=== PATIENT | female | born 1990 | race Hispanic/Latino ===

== ENCOUNTER 2016-10-04 19:14 | Emergency (ER) | payer OTHER ==
[2016-10-04 19:33] VITALS: BMI 27.3
[2016-10-04 19:35] VITALS: TEMP 99.3; O2SAT 98
[2016-10-04] MEDS ORDERED: Sodium Chloride 0.9% 1,000 ML IV STA (20:07)
--- NOTE | 2016-10-04 20:16 | ED PDOC ---
Arrival/HPI - General Chief Complaint: GI Problem Time Seen by Provider: 10/04/16 20:07 Historian: Patient - History of Present Illness Narrative History of Present Illness (Text): 10/04/16 20:18 26-year-old female presents to the emergency room complaining of 4 day history of multiple episodes of nonbloody diarrhea associated with 1 day history of intermittent upper abdominal pain. Patient states that she recently took Augmentin for 10 days for an ear infection, states that she completed the course of Augmentin one week ago. She had started while she was taking Augmentin and she did have loose stools, after finishing Augmentin 2 days later is when she developed the diarrhea. Otherwise: (-) vomiting, (-) recent travel, (-) fever, (-) melena, (-) hematochezia, (-) urinary symptoms, (-) sick contacts. Has no history of prior abdominal surgery. Past Medical History - Provider Review Nursing Documentation Reviewed: Yes - Infectious Disease Hx of Infectious Diseases: None - HEENT Other/Comment: ear infection - Psychiatric Hx Substance Use: No - Anesthesia Hx Anesthesia: No Family/Social History - Physician Review Nursing Documentation Reviewed: Yes Family/Social History: No Known Family HX Smoking Status: Never Smoked Hx Alcohol Use: Yes Frequency of alcohol use: Socially Hx Substance Use: No Allergies/Home Meds Allergies/Adverse Reactions: Allergies No Known Allergies Allergy (Verified 10/04/16 19:33) Home Medications: Home Meds Medication Instructions Recorded Confirmed Norethindrone-E.estradiol-Iron 1 tab PO DAILY 10/04/16 10/04/16 [Minastrin 24 Fe Chewable Tab] Review of Systems - Review of Systems Constitutional: Normal. absent: Fatigue, Weight Change, Fevers ENT: Normal, Other (recent ear infection). absent: Sore Throat, Rhinorrhea, Sinus Congestion Respiratory: Normal. absent: SOB, Cough, Sputum Cardiovascular: Normal. absent: Chest Pain, Palpitations, Edema Gastrointestinal: Normal, Abdominal Pain, Diarrhea. absent: Stool Changes, Appetite Changes Musculoskeletal: Normal. absent: Arthralgias, Back Pain, Neck Pain Skin: Normal. absent: Rash, Pruritis, Skin Lesions Physical Exam Vital Signs Reviewed: Yes Vital Signs Temp Pulse Resp BP Pulse Ox 10/04/16 19:35 99.3 F 117 H 18 120/72 98 Temperature: Afebrile Blood Pressure: Normal Pulse: Tachycardic Respiratory Rate: Normal Appearance: Positive for: Well-Appearing, Non-Toxic, Comfortable Pain Distress: None Mental Status: Positive for: Alert and Oriented X 3 - Systems Exam Head: Present: Atraumatic, Normocephalic Pupils: Present: PERRL Extroacular Muscles: Present: EOMI Conjunctiva: Present: Normal Ears: Present: Normal Mouth: Present: Dry Pharnyx: Present: Normal. No: ERYTHEMA, EXUDATE Neck: Present: Normal Range of Motion. No: MIDLINE TENDERNESS Respiratory/Chest: Present: Clear to Auscultation, Good Air Exchange. No: Respiratory Distress, Accessory Muscle Use, Wheezes, Rales, Rhonchi Cardiovascular: Present: Regular Rate and Rhythm, Normal S1, S2. No: Murmurs Abdomen: Present: Normal Bowel Sounds. No: Tenderness, Distention, Peritoneal Signs, Rebound, Guarding, Mass/Organomegaly Back: Present: Normal Inspection. No: CVA Tenderness, Midline Tenderness Upper Extremity: Present: Normal Inspection, Normal ROM, NORMAL PULSES, Neurovascularly Intact, Capillary Refill < 2s. No: Edema, Tenderness Lower Extremity: Present: Normal Inspection, NORMAL PULSES, Normal ROM, Neurovascularly Intact, Capillary Refill < 2 s. No: Edema, Tenderness, Deformity Neurological: Present: GCS=15, CN II-XII Intact, Speech Normal Skin: Present: Warm, Dry, Normal Color. No: Rashes Psychiatric: Present: Alert, Oriented x 3, Normal Insight, Normal Concentration Medical Decision Making ED Course and Treatment: 10/04/16 20:13 26-year-old female presents to the emergency room complaining of 4 day history of multiple episodes of nonbloody diarrhea associated with a history of intermittent upper abdominal pain today. Based on history and exam, to consider C diff colitis, gastroenteritis, vs medication side effect. Plan: -- Labs -- IV fluids -- Urinalysis -- Stool for C diff, cx, wbc -- Pepcid -- Reassess and disposition 10/04/16 22:00 Lab results reviewed, are within normal limits, and discussed with the patient in great detail. On reevaluation, patient is lying in bed comfortably in no acute distress. Patient reports no nausea, or abdominal pain. States that she did have 2 episodes of diarrhea here in the emergency room stool sent for C diff and culture. On exam, abdomen remained soft with no tenderness, no rebound , no guarding. Patient advised to drink plenty of fluids, and to follow-up with her PMD without family the next 2 days. Patient informed that if she develops any worsening abdominal pain or if the diarrhea continues after 1 week to return to the emergency room for reevaluation. Patient states she fully agrees with and understands discharge instructions. States that he/she agrees with the plan and disposition. Verbalized and repeated discharge instructions and plan. I have given the patient opportunity to ask any additional questions. Follow up with primary care physician in 1-2 days without fail. Return to the emergency room at any time for any new or worsening symptoms. - Lab Interpretations Lab Results: 10/04/16 20:42 10/04/16 20:42 Lab Results 10/04/16 20:42: Sodium 135, Potassium 3.8, Chloride 103, Carbon Dioxide 22, Anion Gap 14, BUN 13, Creatinine 0.7, Est GFR ( Amer) > 60, Est GFR (Non- Af Amer) > 60, Random Glucose 90, Calcium 9.2, Total Bilirubin 0.4, AST 33, ALT 31, Alkaline Phosphatase 54, Total Protein 7.3, Albumin 4.1, Globulin 3.1, Albumin/Globulin Ratio 1.3, Lipase 102 10/04/16 20:42: WBC 12.0 H, RBC 3.89, Hgb 11.1 L, Hct 33.3 L, MCV 85.6, MCH 28.5 , MCHC 33.3, RDW 13.1, Plt Count 238, MPV 10.4, Gran % 78.1 H, Lymph % (Auto) 13.5 L, [place] % (Auto) 7.1 H, Eos % (Auto) 1.2 L, Baso % (Auto) 0.1, Gran # 9.37 H, Lymph # 1.6, [place] # 0.9 H, Eos # 0.1, Baso # 0.01 10/04/16 20:05: Urine Color Yellow, Urine Appearance Sl cloudy, Urine pH 6.0, Ur Specific [place] >= 1.030, Urine Protein 30 H, Urine Glucose (UA) Negative, Urine Ketones Negative, Urine Blood Large H, Urine Nitrate Negative, Urine Bilirubin Small H, Urine Urobilinogen 1.0 H, Ur Leukocyte Esterase Negative, Urine RBC 2 - 5, Urine WBC 1 - 3, Ur Epithelial Cells 4 - 5, Urine Bacteria Small - Medication Orders Current Medication Orders: Discontinued Medications Famotidine (Pepcid) 20 mg IVP STAT STA Stop: 10/04/16 20:08 Last Admin: 10/04/16 20:34 Dose: 20 mg Sodium Chloride (Sodium Chloride 0.9%) 1,000 mls @ 1,000 mls/hr IV .Q1H STA Stop: 10/04/16 21:06 Last Admin: 10/04/16 20:38 Dose: 1,000 mls/hr - PA / RADIOGRAPHER / Resident Statement /DO has reviewed & agrees with the documentation as recorded. Disposition/Present on Arrival - Present on Arrival Any Indicators Present on Arrival: No History of DVT/PE: No History of Uncontrolled Diabetes: No Urinary Catheter: No History of Decub. Ulcer: No History Surgical Site Infection Following: None - Disposition Have Diagnosis and Disposition been Completed?: Yes Diagnosis: Abdominal pain, Diarrhea Disposition: HOME/ ROUTINE Disposition Time: 22:30 Patient Plan: Discharge Patient Problems: Current Active Problems Problem Status Onset Abdominal pain Acute Diarrhea Acute Condition: GOOD Discharge Instructions (ExitCare): Acute Diarrhea (ED), Abdominal Pain (ED) Print Language: CHINESE Additional Instructions: Thank you for letting us take care of you today. You were treated for abdominal pain, diarrhea likely from recently taking Augmentin. The emergency medical care you received today was directed at your acute symptoms. It may take several days for your symptoms to resolve. Return to the Emergency Department if your symptoms worsen, do not improve, or if you have any other problems. Please contact your doctor in 2 days for re-evaluation and follow up. Bring any paperwork you were given at discharge with you along with any medications you are taking to your follow up visit. Our treatment cannot replace ongoing medical care by a primary care provider (PCP) outside of the emergency department. Thank you for allowing the [facility] team to be part of your care today. Referrals: Rebecca Mejia, [Primary Care Provider] - Follow up with primary Forms: WORK NOTE
[2016-10-04 20:24] LABS: URINE BILIRUBIN SMALL (NEGATIVE); URINE BLOOD LARGE (NEGATIVE); URINE GLUCOSE (UA) NEGATIVE (NEGATIVE); URINE KETONE NEGATIVE (NEGATIVE); URINE LEUKOCYTE ESTERASE NEGATIVE Leu/uL (NEGATIVE); URINE PROTEIN 30 mg/dL (<30 mg/dL)
[2016-10-04 20:30] LABS: URINE APPEARANCE SL CLOUDY (CLEAR); URINE COLOR YELLOW (YELLOW)
[2016-10-04 20:32] LABS: URINE BACTERIA SMALL (NEG)
[2016-10-04 20:48] LABS: ADD MANUAL DIFF? NO
[2016-10-04 20:53] LABS: BASO # 0.01 K/mm3 (0.0-2.0); BASO % 0.1 % (0.0-3.0); EOS # 0.1 (0.0-0.7); EOS % 1.2 % (1.5-5.0); GRAN # 9.37 (1.4-6.5); GRAN % 78.1 % (50.0-68.0); HEMATOCRIT 33.3 % (36.0-48.0); LYMPH # 1.6 (1.2-3.4); LYMPH % 13.5 % (22.0-35.0); MEAN CELL VOLUME 85.6 fL (80.0-105.0); MEAN CORPUSCULAR HEMOGLOBIN 28.5 pg (25.0-35.0); MEAN CORPUSCULAR HGB CONC 33.3 g/dl (31.0-37.0); MEAN PLATELET VOLUME 10.4 fl (7.0-11.0); MONO # 0.9 (0.1-0.6); MONO % 7.1 % (1.0-6.0); PLATELET COUNT 238 10^3/uL (120.0-450.0); RED CELL DISTRIBUTION WIDTH 13.1 % (11.5-14.5)
[2016-10-04 21:03] LABS: ALB/GLOB RATIO 1.3 (1.1-1.8); ALKALINE PHOSPHATASE 54 U/L (38-133); ALT/SGPT 31 U/L (7-56); AST/SGOT 33 U/L (15-39); BILIRUBIN,TOTAL 0.4 mg/dL (0.2-1.3); BLOOD UREA NITROGEN 13 mg/dL (7-21); CALCIUM 9.2 mg/dL (8.4-10.5); CARBON DIOXIDE 22 mmol/L (21-33); CHLORIDE 103 mmol/L (98-107); GFR AFRICAN-AMERICAN > 60; GLUCOSE,RANDOM 90 mg/dL (70-110); LIPASE 102 U/L (23-300); POTASSIUM 3.8 mmol/L (3.6-5.0); SODIUM 135 mmol/L (132-148); TOTAL PROTEIN 7.3 g/dL (5.8-8.3)
[2016-10-04 23:36] VITALS: BP 120/83; PULSE 98; RESP 14
== END 2016-10-04 23:35 | disposition home or self-care (01) ==
LOC: ED 19:14
DX: R19.7 Diarrhea, unspecified (principal); R10.9 Unspecified abdominal pain
CPT/HCPCS: 80053; 81001; 83690; 85025; 87045; 87324; 96374; 99283; J7040

== ENCOUNTER 2016-10-05 16:15 | Observation (INO) | payer OTHER ==
[2016-10-05 16:15] VITALS: BMI 27.3
--- NOTE | 2016-10-05 16:44 | ED PDOC ---
Arrival/HPI - General Chief Complaint: GI Problem Time Seen by Provider: 10/05/16 16:16 Historian: Patient - History of Present Illness Narrative History of Present Illness (Text): 10/05/16 16:41 Patient returns to the emergency room for continued diarrhea and tested positive for C. difficile. Patient was called to return to the ER by me. Patient reports no abdominal pain. States that she took immodium last night and was able to sleep without any episodes of diarrhea. Since this morning has had 4 episodes. Otherwise: (-)nausea / vomiting, (-) urinary symptoms, (-) fever, (- ) melena, (-) hematochezia. Has no history of prior abdominal surgery. PMD none Past Medical History - Provider Review Nursing Documentation Reviewed: Yes - Infectious Disease Hx of Infectious Diseases: None - HEENT Other/Comment: ear infection - Psychiatric Hx Substance Use: No - Anesthesia Hx Anesthesia: No Family/Social History - Physician Review Nursing Documentation Reviewed: Yes Family/Social History: No Known Family HX Smoking Status: Never Smoked Hx Alcohol Use: Yes Hx Substance Use: No Allergies/Home Meds Allergies/Adverse Reactions: Allergies No Known Allergies Allergy (Verified 10/04/16 19:33) Home Medications: Home Meds Medication Instructions Recorded Confirmed Norethindrone-E.estradiol-Iron 1 tab PO DAILY 10/04/16 10/04/16 [Minastrin 24 Fe Chewable Tab] Review of Systems - Review of Systems Constitutional: Normal. absent: Fatigue, Weight Change, Fevers Respiratory: Normal. absent: SOB, Cough, Sputum Cardiovascular: Normal. absent: Chest Pain, Palpitations, Edema Gastrointestinal: Normal, Diarrhea. absent: Abdominal Pain, Stool Changes, Appetite Changes Musculoskeletal: Normal. absent: Arthralgias, Back Pain, Neck Pain Skin: Normal. absent: Rash, Pruritis, Skin Lesions Physical Exam - Physical Exam Narrative Physical Exam (Text): 10/05/16 16:40 GENERAL APPEARANCE: Patient is awake, alert, oriented x 3, in no acute distress. SKIN: Warm, dry; (-) cyanosis. EYES: (-) conjunctival pallor, (-) scleral icterus. ENMT: Mucous membranes dry. NECK: (-) tenderness, (-) stiffness, (-) lymphadenopathy. CHEST AND RESPIRATORY: (-) rales, (-) rhonchi, (-) wheezes; breath sounds equal bilaterally. HEART AND CARDIOVASCULAR: (-) irregularity; (-) murmur, (-) gallop. ABDOMEN AND GI: (-) distention. Bowel sounds active; (-) tenderness, (-) guarding, (-) rebound, (-) palpable masses, (-) CVA tenderness. EXTREMITIES: (-) deformity, (-) edema, (+) distal pulses. NEURO AND PSYCH: Mental status as above; (-) focal findings. Vital Signs Temp Pulse Resp BP Pulse Ox 10/05/16 18:05 98 H 18 128/79 98 10/05/16 16:26 98.2 F 109 H 18 131/84 98 Medical Decision Making ED Course and Treatment: 10/05/16 16:39 26 yo F otherwise healthy, presents to the emergency room for positive C. difficile infection, reports of continued diarrhea with no abdominal pain. Plan: -- Labs -- IV fluids -- Urinalysis -- Flagyl and vancomycin po -- Reassess and disposition On re-evaluation, patient is resting comfortably in bed in no acute distress. Reports no abdominal pain or nausea at this time, abdomen remains soft and non- tender. Labs reviewed and d/w the patient. Call placed to med pig conveyor operator Dr. Isabel. Case d/w Dr. Isabel agrees with plan for inpatient admission. Further plan of care d/w the patient in great detail she agrees to admission. - Lab Interpretations Lab Results: 10/05/16 17:20 10/05/16 17:20 Lab Results 10/05/16 17:20: Sodium 139, Potassium 3.7, Chloride 103, Carbon Dioxide 25, Anion Gap 15, BUN 10, Creatinine 0.7, Est GFR ( Amer) > 60, Est GFR (Non- Af Amer) > 60, Random Glucose 91, Calcium 9.5, Total Bilirubin 0.3, AST 29, ALT 36, Alkaline Phosphatase 55, Total Protein 7.2, Albumin 4.3, Globulin 2.9, Albumin/Globulin Ratio 1.5 10/05/16 17:20: WBC 7.4 D, RBC 4.25, Hgb 12.4, Hct 37.2, MCV 87.5, MCH 29.2, MCHC 33.3, RDW 13.3, Plt Count 267, MPV 10.0, Gran % 67.9, Lymph % (Auto) 22.7, [place] % (Auto) 6.7 H, Eos % (Auto) 2.3, Baso % (Auto) 0.4, Gran # 5.04, Lymph # 1.7, [place] # 0.5, Eos # 0.2, Baso # 0.03 - Medication Orders Current Medication Orders: Discontinued Medications Sodium Chloride (Sodium Chloride 0.9%) 1,000 mls @ 1,000 mls/hr IV .Q1H STA Stop: 10/05/16 17:49 Last Admin: 10/05/16 18:00 Dose: 1,000 mls/hr Metronidazole (Flagyl) 500 mg PO STAT STA PRN Reason: Protocol Stop: 10/05/16 16:52 Last Admin: 10/05/16 18:00 Dose: 500 mg Vancomycin HCl (Vancocin 25 Mg/Ml (Oral Use)) 125 mg PO STAT STA PRN Reason: Protocol Stop: 10/05/16 16:52 Last Admin: 10/05/16 18:00 Dose: 125 mg - PA / WOOD BARKER / Resident Statement / has reviewed & agrees with the documentation as recorded. Disposition/Present on Arrival - Present on Arrival Any Indicators Present on Arrival: No History of DVT/PE: No History of Uncontrolled Diabetes: No Urinary Catheter: No History of Decub. Ulcer: No History Surgical Site Infection Following: None - Disposition Have Diagnosis and Disposition been Completed?: Yes Diagnosis: C. difficile diarrhea Disposition: HOSPITALIZED Disposition Time: 18:15 Patient Plan: Admission Patient Problems: Current Active Problems Problem Status Onset C. difficile diarrhea Acute Condition: STABLE
[2016-10-05] MEDS ORDERED: Sodium Chloride 0.9% 1,000 ML IV STA (16:50)
[2016-10-05] MEDS ORDERED: Vancomycin 25 MG/ML PO STA (16:51)
[2016-10-05 17:53] LABS: ALB/GLOB RATIO 1.5 (1.1-1.8); ALBUMIN 4.3 g/dL (3.0-4.8); ALT/SGPT 36 U/L (7-56); AST/SGOT 29 U/L (15-39); BLOOD UREA NITROGEN 10 mg/dL (7-21); CALCIUM 9.5 mg/dL (8.4-10.5); GFR AFRICAN-AMERICAN > 60; GFR NON-AFRICAN AMERICAN > 60
[2016-10-05 17:56] LABS: BASO # 0.03 K/mm3 (0.0-2.0); BASO % 0.4 % (0.0-3.0); EOS # 0.2 (0.0-0.7); EOS % 2.3 % (1.5-5.0); GRAN # 5.04 (1.4-6.5); GRAN % 67.9 % (50.0-68.0); HEMOGLOBIN 12.4 gm/dL (12.0-16.0); LYMPH # 1.7 (1.2-3.4); LYMPH % 22.7 % (22.0-35.0); MEAN CELL VOLUME 87.5 fL (80.0-105.0); MEAN CORPUSCULAR HEMOGLOBIN 29.2 pg (25.0-35.0); MEAN CORPUSCULAR HGB CONC 33.3 g/dl (31.0-37.0); MONO # 0.5 (0.1-0.6); MONO % 6.7 % (1.0-6.0); PLATELET COUNT 267 10^3/uL (120.0-450.0); RBC 4.25 10^6/uL (3.5-6.1); RED CELL DISTRIBUTION WIDTH 13.3 % (11.5-14.5); WHITE BLOOD COUNT 7.4 10^3/ul (4.5-11.0)
[2016-10-05] MEDS: Dextrose 5%/0.45% NS 1,000 ML IV SCH (20:36)
[2016-10-05] MEDS: metroNIDAZOLE IV 250mg/50 ml 250 MG/50 ML BAG IV SCH (21:06)
[2016-10-05] MEDS: Vancomycin 25 MG/ML PO SCH (22:39)
[2016-10-06] MEDS: metroNIDAZOLE IV 250mg/50 ml 250 MG/50 ML BAG IV SCH ×2 (05:59→21:54)
[2016-10-06] MEDS: Dextrose 5%/0.45% NS 1,000 ML IV SCH (06:00)
[2016-10-06 07:16] LABS: BASO # 0.03 K/mm3 (0.0-2.0); BASO % 0.6 % (0.0-3.0); EOS # 0.2 (0.0-0.7); GRAN # 2.12 (1.4-6.5); GRAN % 39.8 % (50.0-68.0); HEMOGLOBIN 10.4 gm/dL (12.0-16.0); LYMPH # 2.4 (1.2-3.4); LYMPH % 44.2 % (22.0-35.0); MEAN CELL VOLUME 87.5 fL (80.0-105.0); MEAN CORPUSCULAR HEMOGLOBIN 28.3 pg (25.0-35.0); MEAN CORPUSCULAR HGB CONC 32.4 g/dl (31.0-37.0); MONO # 0.7 (0.1-0.6); MONO % 12.4 % (1.0-6.0); PLATELET COUNT 225 10^3/uL (120.0-450.0); RBC 3.67 10^6/uL (3.5-6.1); RED CELL DISTRIBUTION WIDTH 13.3 % (11.5-14.5); WHITE BLOOD COUNT 5.3 10^3/ul (4.5-11.0)
[2016-10-06 07:45] LABS: ALB/GLOB RATIO 1.3 (1.1-1.8); ALBUMIN 3.6 g/dL (3.0-4.8); ALT/SGPT 31 U/L (7-56); AST/SGOT 33 U/L (15-39); BLOOD UREA NITROGEN 4 mg/dL (7-21); CALCIUM 8.6 mg/dL (8.4-10.5); GFR AFRICAN-AMERICAN > 60; GFR NON-AFRICAN AMERICAN > 60
[2016-10-06] MEDS: Vancomycin 25 MG/ML PO SCH ×2 (11:09→21:53)
[2016-10-07] MEDS: Dextrose 5%/0.45% NS 1,000 ML IV SCH ×3 (03:05→08:46)
[2016-10-07] MEDS: metroNIDAZOLE IV 250mg/50 ml 250 MG/50 ML BAG IV SCH ×2 (05:04→13:20)
[2016-10-07 08:27] VITALS: BP 119/70; PULSE 78; RESP 16; TEMP 98; O2SAT 99
[2016-10-07 08:32] LABS: ALB/GLOB RATIO 1.3 (1.1-1.8); ALBUMIN 3.5 g/dL (3.0-4.8); ALT/SGPT 34 U/L (7-56); AST/SGOT 43 U/L (15-39); BLOOD UREA NITROGEN < 2 mg/dL (7-21); CALCIUM 8.9 mg/dL (8.4-10.5); GFR AFRICAN-AMERICAN > 60; GFR NON-AFRICAN AMERICAN > 60; MAGNESIUM 1.7 mg/dL (1.7-2.2)
[2016-10-07] MEDS: Vancomycin 25 MG/ML PO SCH ×2 (09:52→13:20)
[2016-10-07] MEDS ORDERED: Lactobacillus Acidophilus 500 MU Cap PO SCH (10:00)
== END 2016-10-07 15:03 | disposition home or self-care (01) ==
LOC: ED 16:15 → ERH 18:15 → INTOOBSV 18:15 → ERH 19:05 → 5RNO 20:10
PROVIDERS: ADMIT Internal Medicine; ATTEND Internal Medicine
DX: A04.7 Enterocolitis due to Clostridium difficile (principal); E86.0 Dehydration; E87.6 Hypokalemia; T36.8X5A Adverse effect of other systemic antibiotics, initial encounter
CPT/HCPCS: 36415; 80053; 83735; 84100; 85025; 96360; 99285; G0378; J3480; J7040; J7042